=== PATIENT | female | born 1970 | race Caucasian/White ===

== ENCOUNTER 2020-01-23 16:41 | Outpatient (CLI) | payer OTHER, SELFPAY ==
--- NOTE | ~2020-01-23 | MR_ITS ---
EXAMINATION: MR lumbar spine wo con DATE: 01/23/2020 17:13 INDICATION: Lumbar radiculopathy TECHNIQUE: Magnetic resonance imaging (MRI) of the lumbar spine was performed without intravenous con trast. Sequences included sagittal T2-weighted FSE, sagittal T2-weighted FS FSE, sagittal T1-weighted FSE, and axial T2-weighted FSE. COMPARISON: None FINDINGS: Mild lumbar levocurvature. Sagittal alignment is normal. Vertebral body heights are normal. Normal m arrow signal. Mild to moderate right-sided predominant disc height loss at L1-L2 and L3-L4, mild righ t-sided predominant disc height loss at L2-L3, mild left-sided disc height loss at L4-L5. Mild diffus e disc height loss at T11-T12 and L5-S1. The conus medullaris terminates at L2. There is normal signa l in the caudal spinal cord. Paravertebral soft tissues are unremarkable. The following disc levels a re specifically discussed: T12-L1: The disc does not extend beyond the endplate margin. There is mild bilateral facet joint oste oarthritis. There is no neural foraminal stenosis. There is no central canal stenosis. L1-L2: Disc is bulging with annular fissure. There is mild left and minimal right facet joint osteoar thritis. There is minimal right neural foraminal stenosis. There is mild central canal stenosis. L2-L3: Disc is minimally bulging. There is mild right and minimal left facet joint osteoarthritis. Th ere is no neural foraminal stenosis. There is no central canal stenosis. L3-L4: Disc is mildly bulging. There is mild to moderate left and moderate right facet joint osteoart hritis. There is mild right and mild to moderate left neural foraminal stenosis. There is minimal champ tral canal stenosis. L4-L5: Eccentric to the left mild disc bulge. There is moderate left and moderate to severe right fac et joint osteoarthritis. There is mild right and moderate left neural foraminal stenosis. There is mi nimal central canal stenosis. L5-S1: Annular fissure and small central disc protrusion. There is mild right and moderate to severe left facet joint osteoarthritis. There is mild right and mild to moderate left neural foraminal steno sis. There is no central canal stenosis. IMPRESSION: 1. Mild lumbar levocurvature with mild to moderate spondylosis. Reviewed, dictated and finalized at location H. TIC CNC MACHINE OPERATOR
== END 2020-01-23 16:42 | disposition home or self-care (01) ==
LOC: ANHIMG 16:41
PROVIDERS: PCP Internal Medicine; Visit Provider Orthopaedic Surgery
DX: M47.26 Other spondylosis with radiculopathy, lumbar region (principal); M41.86 Other forms of scoliosis, lumbar region
CPT/HCPCS: 72148

== ENCOUNTER 2020-12-03 01:28 | Day surgery (SDC) | payer OTHER, SELFPAY ==
[2020-11-24 09:47] VITALS: BMI 23.6
[2020-12-03] VITALS (7 sets, daily range): BP systolic 113–131; BP diastolic 78–84; PULSE 78–91; RESP 10–16; TEMP 36.2–36.9; O2SAT 96–100
--- NOTE | ~2020-12-03 | XR_ITS ---
EXAMINATION: XR surgery orthopedic EXAM DATE: 12/03/2020 13:07 INDICATION: Right foot surgery. TECHNIQUE: Fluoroscopy used during right 1st metatarsophalangeal arthrodesis performed by Dr. Ramy Stallworth JR MD. Radiologist was not present for the imaging or procedure. Total fluoroscopic sharmaine e of 4 seconds. The DAP for this procedure was 0.26 cGycm2. A total of 3 images sent to PACS from t he exam. FINDINGS: Frontal and lateral images demonstrates orthopedic plate and supporting screws along the d orsal aspect of the right 1st metatarsophalangeal joint. Correlate with procedure note. IMPRESSION: Fluoroscopy used during right 1st MTP arthrodesis. Reviewed, dictated and finalized at location B.
--- NOTE | 2020-12-03 07:09 | WPDHPUPDATE1 ---
History and Physical Update Update Date/Time: 12/03/20 07:09 History and Physical has been reviewed, including an updated exam of the patient. There are NO changes in the patient's condition. Risks, benefits, and alternatives have been discussed and questions answered. Patient agrees to proceed with procedure.
[2020-12-03] MEDS: LACTATED RINGERS 1,000 ML 30 ML IV CONT ×2 (10:46→13:21)
--- NOTE | 2020-12-03 11:11 | WPDANESEPPF ---
Anes - Initial Pre Proc Eval Procedure: Operation Date: 12/03/20 12:00 Proposed Procedures p Arthrodesis of First Metatarsal Phalangeal Joint Right Foot - Nicholas Stallworth JR, MD Date/Time: 12/03/20 11:11 Surgeon: Nicholas Stallworth JR, MD Pre Op Diagnosis: arthritic bunion right foot Patient Data Age: 50 Gender: F Height: 1.68 m Weight: 67.4 kg Last Vital Signs Temp 36.9 C 12/03/20 10:07 Pulse 90 12/03/20 10:07 Resp 16 12/03/20 10:07 BP 131/84 12/03/20 10:07 Pulse Ox 100 12/03/20 10:07 Allergies Allergy/AdvReac Type Severity Reaction Status Date / Time Sulfa (Sulfonamide Allergy Severe Hives / Verified 12/03/20 10:42 Antibiotics) Red Face Penicillins Allergy Intermediate Hives / Verified 12/03/20 10:42 Red Face Home Medications Medication Instructions Recorded Confirmed Type fluoxetine 40 mg capsule 40 mg PO DAILY 12/16/19 12/03/20 History sumatriptan succinate 25 mg tablet 25 mg PO ONCE PRN 12/16/19 12/03/20 History meloxicam 15 mg PO DAILY 11/24/20 12/03/20 History Patient hx anesthesia problems: none and other (motion sickness) Family hx anesthesia problems: none Results Review: All pre-operative results and documents have been reviewed as part of the pre-operative evaluation. FORMERLY [facility], [facility] Past Medical History Medical History Anxiety Arthritis, lumbar spine Carpal tunnel syndrome surgery 2007, left side Family History Family History Mother Cancer Father Heart disease Social History Social History Smoking status: Never smoker Alcohol intake: never Living arrangements: with family Gender identity (if verbalized by the patient): Female Spiritual care concerns: No Anes - Eval Final PreProcedure Day of Procedure 12/03/20 11:11 Patient weight: normal Heart: regular rate and rhythm Lungs: clear to auscultation Airway: Mallampati scale class II Neurological: alert and oriented Last oral intake: >/= 8 hours ASA classification: II Emergent: no Anesthetic plan: proceed Anesthesia type and monitoring: general LMA and standard monitoring Results Review: All pre-operative results and documents have been reviewed as part of the pre-operative evaluation. Informed Consent: The patient's anesthetic plan and its attendant risks and benefits were discussed with the patient/family/POA. Questions were solicited and answers provided to the satisfaction of the patient/family/POA.
[2020-12-03] MEDS: SCOPOLAMINE 1.5 MG PATCH TRANSDERM (11:13)
[2020-12-03] MEDS: ceFAZolin 2 GM/D5W 50 ML 2 GM/50 ML BAG IVPB (12:02)
[2020-12-03] MEDS: BUPIVACAINE HCL 0.5% PF 30 ML VIAL 10 ML INFILTRATE (12:27)
--- NOTE | 2020-12-03 13:14 | W.PM.PROC2 ---
Procedure Note - Detailed Date of Procedure 12/03/20 Pre-op Diagnosis arthritic bunion right foot Post-op Diagnosis same Procedure Performed Arthrodesis of the first metatarsal phalangeal joint right foot Surgeon Nicholas Stallworth JR, ANNE Anesthesia general and local Description of Procedure PROCEDURE IN DETAIL: Under mild sedation, the patient was brought into the operating room, placed on the operating table in supine position. A pneumatic ankle tourniquet was placed about the patient's ipsilateral ankle. Following general LMA, a local anesthetic block was obtained about the foot and ankle utilizing 20 cc of Exparel mixed with 10ccs of 0.5% Marcaine plain. The foot was then scrubbed, prepped, and draped in the usual aseptic manner. An Esmarch bandage was then used to exsanguinate the patient's foot and the pneumatic ankle tourniquet was then inflated. Surgery began in the following manner: Attention was directed to the dorsal aspect of the 1st metatarsophalangeal joint where there was a large subcutaneous prominence noted along the dorsomedial aspect of the joint. The incision was made starting along the central shaft of the 1st metatarsal and extending just proximal to the interphalangeal joint of the hallux. The incision was continued deep down through the subcutaneous tissues using sharp and blunt dissection. All bleeders were cauterized as necessary. At this point, the dissection was continued down to the level of the periosteum and capsular structures overlying the 1st metatarsophalangeal joint. A full length periosteum and capsular incision was made just medial to the extensor hallucis longus tendon. The periosteum and capsular structures were freed from the base of the proximal phalanx as well as the distal 1st metatarsal. At this point, the 1st metatarsophalangeal joint was identified. There was almost complete loss of articular cartilage to the head of the 1st metatarsal as well as the base of the proximal phalanx. There was significant broadening and hypertrophy of the 1st metatarsophalangeal joint. Utilizing a sagittal bone saw, the hypertrophied 1st metatarsal was resected dorsally, medially, and laterally. A power bur was used to make sure that there were no rough edges and also to further debride the hypertrophic 1st metatarsal. Next, a rongeur was used to resect all hypertrophic base of the proximal phalanx. At this point, the reamer system for the [facility] CrossCHECK system was used to denude the degenerative cartilage from the head of the 1st metatarsal as well as the base of the proximal phalanx. The cartilage and subchondral bone were fully debrided utilizing the reamer system until healthy bleeding bone was noted. Next, a 2-0 drill bit was used to further fenestrate the head of the 1st metatarsal as well as the base of the proximal phalanx in order to allow fusion across the 1st metatarsophalangeal joint. Next, a 0.045 inch K-wire was driven from the medial aspect of the base of the proximal phalanx into the head of the 1st metatarsal in order to serve as temporary fixation. A large steel plate was used to make sure that the hallux was in a rectus position both in the sagittal plane as well as the frontal and transverse plane. Excellent position of the hallux was noted. Next, a CrossCHECK plate was placed atop the 1st metatarsophalangeal joint held in position with Rosman wires. Utilizing standard principles and techniques, the 2 distal drill holes were drilled and two 2.7mm mm fully-threaded locking screws were driven from dorsal to plantar holding the distal aspect of the plate intact. At this point, a 3.5mm lag screw was driven from dorsal distal to proximal plantar across the 1st metatarsophalangeal joint through the plate system with excellent compression noted after careful removal of the olive wire and temporary fixation from the 1st metatarsophalangeal joint. Next, [address]
== END 2020-12-03 14:57 | disposition home or self-care (01) ==
PROVIDERS: PCP Internal Medicine; Visit Provider Podiatrist Foot & Ankle Surgery
PROC: (CPT 28750; principal; 2020-12-03 12:00)
DX: M21.611 Bunion of right foot (principal); M19.071 Primary osteoarthritis, right ankle and foot; F41.9 Anxiety disorder, unspecified
CPT/HCPCS: 28750; A9270; C1713; C9290; J0690; J1100; J2250; J2405; J2704; J3010; J7120

== ENCOUNTER 2021-01-13 09:59 | Outpatient (CLI) | payer OTHER, SELFPAY ==
[2021-01-13 10:52] LABS: Alanine Aminotransferase 13 U/L (4-35); Aspartate Amino Transferase 24 U/L (14-36)
== END 2021-01-13 10:00 | disposition home or self-care (01) ==
LOC: ANHLAB 10:02
PROVIDERS: PCP Internal Medicine; Visit Provider Podiatrist Foot & Ankle Surgery
DX: B35.1 Tinea unguium (principal)
CPT/HCPCS: 36415; 84450; 84460

== ENCOUNTER 2021-05-17 14:55 | Outpatient (CLI) | payer OTHER, SELFPAY ==
[2021-05-17 15:36] LABS: Alanine Aminotransferase 13 U/L (4-35); Aspartate Amino Transferase 30 U/L (14-36)
== END 2021-05-17 14:56 | disposition home or self-care (01) ==
LOC: ANHLAB 14:57
PROVIDERS: PCP Internal Medicine; Visit Provider Podiatrist Foot & Ankle Surgery
DX: B35.1 Tinea unguium (principal)
CPT/HCPCS: 36415; 84450; 84460

== ENCOUNTER 2021-11-23 15:45 | Outpatient (CLI) | payer OTHER, SELFPAY ==
[2021-11-23 16:18] LABS: CRP < 0.5 mg/dL (<1.0); Uric Acid 4.3 mg/dL (2.5-7.5)
[2021-11-23 16:21] LABS: Rheumatoid Factor < 12.0 IU/ML (<12)
[2021-11-23 16:38] LABS: Erythrocyte Sedimentation Rate 9 mm/hr (0-20)
[2021-11-28 21:18] LABS: Anti Nuclear Antibody Pattern Nuclear, Speckled; Anti Nuclear Antibody Titer 1:40 (Negative)
== END 2021-11-23 15:46 | disposition home or self-care (01) ==
LOC: ANHLAB 15:48
PROVIDERS: PCP Internal Medicine; Visit Provider Podiatrist Foot & Ankle Surgery
DX: M06.9 Rheumatoid arthritis, unspecified (principal); M10.9 Gout, unspecified; M45.0 Ankylosing spondylitis of multiple sites in spine
CPT/HCPCS: 36415; 84550; 85652; 86038; 86039; 86140; 86430

== ENCOUNTER 2022-01-25 10:39 | Outpatient (CLI) | payer OTHER, SELFPAY ==
--- NOTE | ~2022-01-25 | MR_ITS ---
EXAMINATION: MR foot RT wo con DATE: 01/25/2022 11:21 INDICATION: Plantar fasciitis at the right foot with plantar right heel pain. TECHNIQUE: Magnetic resonance imaging (MRI) of the right ankle was performed without intravenous cont rast. Sequences included sagittal, coronal, and axial proton-density weighted fast spin echo without and with fat saturation. COMPARISON: None. FINDINGS: Medial ankle ligaments: Deep and superficial deltoid ligaments as well as the spring ligament are normal. Lateral ankle ligaments: The anterior and posterior inferior tibiofibular ligaments are normal. The anterior talofibular, calc aneofibular and posterior talofibular ligaments are normal. Tendons: Achilles tendon is normal. The peroneus longus and brevis tendons are normal. The tibialis anterior a nd extensor hallucis longus and extensor digitorum longus tendons are normal. The tibialis posterior, flexor digitorum longus and flexor hallucis longus tendons are normal. Plantar fascia: There is thickening and mild increased signal in the proximal plantar aponeurosis with minimal surrou nding edema. There is also a small plantar calcaneal spur at its origin with mild marrow edema. Findi ngs are consistent with mild to moderate plantar fasciitis. Bones/other: Bone alignment is normal. No fracture or pathologic marrow replacing process. Mild osteoarthritis at the tibiotalar joint with minimal subarticular edema along the medial rim of the talar dome likely re lated to overlying chondromalacia. Additional mild osteoarthritis at the second and third tarsal meta tarsal joints. Bone island at the lateral base of the first metatarsal. Fluid: Physiologic amount fluid in the joint spaces. Small ganglion cyst arising from the talonavicular join t and extending across the dorsolateral neck of the talus. Normal small amount of fluid around the di stal myotendinous junction of the flexor hallucis longus. IMPRESSION: 1. Mild to moderate plantar fasciitis without discrete tear. Reviewed, dictated and finalized at location B. ADMINISTRATOR
== END 2022-01-25 10:40 ==
LOC: MICIMG 10:40
PROVIDERS: PCP Internal Medicine; Visit Provider Podiatrist Foot & Ankle Surgery
DX: M72.2 Plantar fascial fibromatosis (principal)
CPT/HCPCS: 73718

== ENCOUNTER 2022-03-03 00:45 | Day surgery (SDC) | payer OTHER, SELFPAY ==
[2022-02-20 08:58] VITALS: BMI 23.6
--- NOTE | 2022-02-20 08:59 | PC.NURSE ---
Report to the Outpatient Waiting Room, entrance under the green pavilion located off [facility], at time _0915_ on date _[id number]_. Planned Procedure Time: _1115_. Time changes happen often and if your time is changed the preop area will call you the afternoon before. - You and your visitor will be asked to self-screen and do not enter if you have any COVID symptoms. - Only one visitor is requested with a max of two and NO children visitors are allowed at this time. - The patient visitor may be requested to leave or wait in car when not with patient due to distancing restrictions. - A mask is optional within the hospital. Patients may have clear liquids (water, carbonated beverages, clear teas, apple juice) until 3 hours prior to surgery with a maximum of 20 ounces. - No food from midnight until time of surgery Take the following medications with a SIP of water the morning of surgery: ____Fluoxetine Medications to discontinue per physician ____None Date to take last dose Please no make-up, nail french, hairspray, perfume, deodorant, or body powder the day of surgery. No jewelry (including any body piercings) or valuables the day of surgery, leave them at home. Please take a shower or bath the night before, or the morning of, surgery with an antibacterial soap. Wear comfortable, loose fitting clothing. - Jewelry must be removed prior to entering the operating room. Rings and piercings that are not removed may be cut off. - The hospital will not accept responsibility for valuables. - Please leave all valuables, including medications, at home the day of surgery. If you are going home after surgery, a licensed delivery truck driver heavy must drive you home. - NO public transportation without another adult if you receive anesthesia. - We recommend that an adult stay with you for 24 hours following discharge. - We also recommend that you do not drive, make important decision, drink alcoholic beverages, or take any drugs that were not prescribed by your health care provider for at least 24 hours after your discharge time. Follow any additional instructions given to you from your surgeon. If you or anyone in your household have experienced Covid symptoms in the past week, please notify your surgeon or the nurse liaison at the phone number below for possible testing. Telephone instructions given to __Patient___and asked if any additional questions and then verbalized understanding. Patient advised to call surgeon office or pre surgery nurse liaison [phone] if any additional questions.
--- NOTE | 2022-03-03 07:24 | WPDHPUPDATE1 ---
History and Physical Update Update Date/Time: 03/03/22 07:24 History and Physical has been reviewed, including an updated exam of the patient. There are NO changes in the patient's condition. Risks, benefits, and alternatives have been discussed and questions answered. Patient agrees to proceed with procedure.
[2022-03-03 10:17] VITALS: BP 134/89; PULSE 92; RESP 14; TEMP 36.6
[2022-03-03] MEDS: LACTATED RINGERS 1,000 ML 30 ML IV CONT (10:22)
--- NOTE | 2022-03-03 10:51 | WPDANESEPPF ---
Anes - Initial Pre Proc Eval Procedure: Operation Date: 03/03/22 11:15 Proposed Procedures p Partial Plantar Fasciectomy Right Foot - Nicholas Stallworth JR, MD Date/Time: 03/03/22 10:51 Surgeon: Nicholas Stallworth JR, MD Pre Op Diagnosis: flantar fascitis right foot Patient Data Age: 51 Gender: F Height: 1.65 m Weight: 63.35 kg Last Vital Signs Temp 36.6 C 03/03/22 10:17 Pulse 92 03/03/22 10:17 Resp 14 03/03/22 10:17 BP 134/89 03/03/22 10:17 Allergies Allergy/AdvReac Type Severity Reaction Status Date / Time Sulfa (Sulfonamide Allergy Severe Hives / Verified 03/03/22 10:09 Antibiotics) Red Face Penicillins Allergy Intermediate Hives / Verified 03/03/22 10:09 Red Face Home Medications Medication Instructions Recorded Confirmed Type fluoxetine 40 mg capsule 40 mg PO DAILY 12/16/19 03/03/22 History sumatriptan succinate 25 mg tablet 25 mg PO ONCE PRN Migraine Headache 12/16/19 02/20/22 History cetirizine 10 mg tablet (Zyrtec) 10 mg PO DAILY 02/20/22 03/03/22 History Patient hx anesthesia problems: none Family hx anesthesia problems: none Results Review: All pre-operative results and documents have been reviewed as part of the pre-operative evaluation. FORMERLY [facility], [facility] Past Medical History Medical History Anxiety Arthritis, lumbar spine Carpal tunnel syndrome surgery 2007, left side Surgical History Surgical History (Updated 03/03/22 @ 10:51 by Sloan Rhodes MD) History of bunionectomy Family History Family History Mother Cancer Father Heart disease Social History Social History Smoking status: Never smoker Alcohol intake: never Living arrangements: with family Gender identity (if verbalized by the patient): Female Spiritual care concerns: No Anes - Eval Final PreProcedure Day of Procedure 03/03/22 10:51 Patient weight: normal Heart: regular rate and rhythm Lungs: clear to auscultation Airway: Mallampati scale class II Neurological: alert and oriented Last oral intake: >/= 8 hours ASA classification: II Emergent: no Anesthetic plan: proceed Anesthesia type and monitoring: general GIVS and standard monitoring Results Review: All pre-operative results and documents have been reviewed as part of the pre-operative evaluation. Informed Consent: The patient's anesthetic plan and its attendant risks and benefits were discussed with the patient/family/POA. Questions were solicited and answers provided to the satisfaction of the patient/family/POA.
[2022-03-03] MEDS: ceFAZolin 2 GM/D5W 50 ML 2 GM/50 ML BAG IVPB (11:26)
[2022-03-03] MEDS: LIDOCAINE HCL 2% PF INJ 5 ML VIAL 20 ML INFILTRATE (11:49)
[2022-03-03 12:05] VITALS: BP 104/69; PULSE 89; RESP 12; O2SAT 99
--- NOTE | 2022-03-03 12:29 | W.PM.PROC2 ---
Procedure Note - Detailed Date of Procedure 03/03/22 Pre-op Diagnosis Plantar fascitis right foot Post-op Diagnosis Same Procedure Performed Partial plantar fasciectomy right foot Surgeon Nicholas Stallworth JR, KAYM Anesthesia MAC and Local Indications Chronic inferior right heel pain. Description of Procedure Under mild sedation, the patient was brought in to the operating room, placed on the operating table in the supine position. A pneumatic ankle tourniquet was placed about the patient's ankle. Following general anesthesia, local anesthesia was obtained about the affected lower extremity utilizing 20 mL of a one to mix of 2% Lidocaine plain and 0.5% Marcaine plain to the tibial nerve. The foot was then scrubbed, prepped, and draped in the usual aseptic manner. An Esmarch bandage was then used to exsanguinate the patient's foot and the pneumatic ankle tourniquet was then inflated. Next, an incision was made starting distal to the medial tubercle of the calcaneus extending distally 3cm. All bleeders were cauterized as necessary. Next the dissection was continued down to the plantar fascia it was exposed medially and laterally with [employer] [place] retractors. Two thirds of the medial plantar fascia was transected and a 4mm portion was also cut and discarded. The wound site was flushed with sterile saline. The deep subcutaneous tissue was reapproximated with 3.0 Vicryl and the skin was reapproximated with 2.0 Prolene and 3.0 Prolene in Vertical mattress and Simple interrupted suture technique. Upon completion of the procedure, the plantar incision was dressed with adaptic, 4x4 gauze, kerlix and coban. The pneumatic ankle tourniquet was then deflated and a prompt hyperemic response was noted to all digits of the affected foot. A CAM Walker boot was then applied. The patient did very well with the procedure and the anesthesia. The patient was transferred to the recovery room with vital signs stable and vascular status intact to all toes of the affected foot. Following a period of postoperative monitoring, the patient will be discharged home on the following written and oral postoperative instructions: 1. The patient should keep the dressing clean, dry, and intact. Use a cast protector bag with showers. 2. The patient will be strictly protected weight bearing with CAM walker boot. 3. Patient should ice and elevate the affected foot when at rest. 4. The patient is to contact Dr. Stallworth for all postop care and if any problems arise. 5. Prescriptions were written for Percocet 5/325 dispensed 40 to be taken 1 p.o. q.4-6 hours as needed for severe pain. Estimated Blood Loss 1 Drains No Packing No Pathology None sent Complications No immediate complications Condition Stable Disposition Same day
[2022-03-03 12:35] VITALS: BP 110/78
== END 2022-03-03 13:10 | disposition home or self-care (01) ==
PROVIDERS: PCP Internal Medicine; Visit Provider Podiatrist Foot & Ankle Surgery
PROC: (CPT 28119; principal; 2022-03-03 11:15)
DX: M72.2 Plantar fascial fibromatosis (principal); F41.9 Anxiety disorder, unspecified
CPT/HCPCS: 28060; J0690; J2250; J2405; J2704; J3010; J7120